=== PATIENT | female | born 1970 | race Caucasian/White ===

== ENCOUNTER 2018-10-10 14:25 | Emergency (ER) | payer MEDICAID, SELFPAY ==
[2018-10-10 14:26] VITALS: BP 163/86; PULSE 78; RESP 17; TEMP 36.9; O2SAT 98; BMI 37.2
--- NOTE | 2018-10-10 15:08 | CT_ITS ---
STUDY: CT ABDOMEN AND PELVIS WITHOUT CONTRAST REASON FOR EXAM: Female, 48 years old. Left flank pain RADIATION DOSAGE (If Supplied By Facility): CTDIvol = ( 14.80 ) mGy, DLP = ( 733.45 ) mGycm TECHNIQUE: Transaxial images were obtained from the dome of the diaphragm to the symphysis pubis without oral contrast, and without intravenous contrast. Sagittal and coronal images were reconstructed. Individualized dose optimization techniques were used for this CT. COMPARISON: None. FINDINGS: The visualized lung bases are unremarkable. The visualized portions of the heart are within normal limits. Normal liver. Normal gallbladder and extrahepatic biliary system. Normal spleen. Normal pancreas. Normal bilateral adrenal glands. Normal right kidney. Normal left kidney. Normal visualized stomach. Normal small intestine. Normal colon. The appendix is visualized and appears normal. There are calcified plaques of the abdominal aorta and common iliac arteries. Normal inferior vena cava. Normal retroperitoneum. Normal urinary bladder. Status post hysterectomy changes are noted. There is a 4 mm calcification in the region of the left UVJ-I cannot determine with certainty if this is intra or extra ureteral. There is a small umbilical hernia containing fat. There are diffuse degenerative changes of the visualized lumbar spine. CT/Abdomen/Pelvis without Cont IMPRESSION: 1. There is no evidence of hydronephrosis, hydroureter, or nephrolithiasis. There is a 4 mm calcification in the region of the left UVJ-I cannot determine with certainty of this is intra or extra ureteral. 2. Status post hysterectomy. 3. Small fat-containing umbilical hernia. 4. There is no evidence of free intra-abdominal or intrapelvic air, fluid, or inflammatory process. Electronically Signed: Geovany Dennis MD at 16:29 EDT , Service support ,
[2018-10-10] MEDS: Ketorolac 30 MG/ML Syringe IV (15:20)
[2018-10-10] MEDS: 0.9% Normal Saline 1,000 ML 150 ML IV (15:20)
[2018-10-10] MEDS: Ondansetron 4 MG/2 ML Vial IV (15:21)
[2018-10-10] MEDS: Morphine 4 MG/ML Syringe IV (15:21)
--- NOTE | 2018-10-10 15:37 | ED.DCSUM_ITS ---
- ER Visit Summary Date of Service: 10/10/18 Chief Complaint: Flank pain History of Present Illness: The patient is a 48 F with rather abrupt left flank pain that started 2 hours prior to arrival. She denies dysuria or hematuria. She does have nausea. She cannot find a position of comfort. Physical Examination: Vital signs significant for blood pressure 163/86, otherwise unremarkable. Patient is standing at bedside. She appears uncomfortable. Head neck examination unremarkable. Heart is regular rate and rhythm. Lung sounds are clear. Abdomen is soft with no focal tenderness. Back examination does reveal left CVA tenderness. Test Results: CBC and chemistry studies are unremarkable. Urinalysis is normal. CT flank shows no evidence of hydronephrosis or hydroureter. There is a 4 mm calcification in the region of the left UVJ. They cannot determine if this is intraluminal or extraluminal. Emergency Department Course and Treatment: Patient was given Toradol, morphine, Zofran, and IV fluids. She did require a small dose of Dilaudid for continued pain. On repeat evaluation she is resting more comfortably. We discussed the possibility of kidney stone versus muscle spasm with pinched nerve. She has b een lifting her granddaughter over the past week which is not normal for her. Patient will be given a prescription for naproxen, [place], and Flexeril. She is to return for worsening symptoms or concerns. Treatment Plan: [] Disposition: Discharge Impression: Left flank pain This note was generated with [employer] dictation software. It may contain incorrect words, spelling, and punctuation that were not noted in review of the chart prior to signing ED Disposition - Plan for ED Patient: Referrals: Ashley Cox [Primary Care Provider] -
[2018-10-10 15:57] LABS: Absolute Lymphocyte Count 1.32 X10^3/ul (0.83-4.51); Basophil# 0.05 X10^3/uL; Basophil% 0.6 % (0-1); Eosinophil# 0.12 X10^3/uL; Eosinophils% 1.5 % (0-5); Hematocrit 39.3 % (37-47); Hemoglobin 12.7 g/dl (12.0-15.0); Lymphocyte # 1.32 X10^3/ul (4.0); Lymphocyte % 16.4 % (19-41); Mean Corp Hgb Conc 32.3 g/gl (32-36); Mean Corpuscular Hgb 28.3 pg (27.0-32.0); Mean Corpuscular Volume 87.7 fL (81-99); Mean Platelet Vol. 11.3 fl (6.2-12.0); Monocyte# 0.55 X10^3/uL; Monocyte% 6.8 % (0-10); Neutrophil % 74.5 % (47-70); Platelet Count 249 K/mm3 (150-450); RBC Distribution Width SD 47.9 fl (35.1-43.9); Red Blood Count 4.48 M/mm3 (4.2-5.4); White Blood Count 8.1 K/mm3 (4.4-11.0)
[2018-10-10 15:59] LABS: POSITIVE COUNT NO; POSITIVE DIFFERENTIAL NO; POSITIVE MORPHOLOGY NO
[2018-10-10 16:14] LABS: BUN 18 mg/dL (7-18); Creatinine, Serum 0.83 mg/dL (0.55-1.02); Glucose 105 mg/dL (74-106)
[2018-10-10 16:15] LABS: Anion Gap 6 (5-15); BUN/Creat Ratio 21.6 RATIO (10-20); Calcium,Total 8.6 mg/dL (8.5-10.1); Chloride 109 mmol/L (98-107); EST Glomerular Filtration Rate 77 mL/min (>60); Est Glom Filt Rate - Afr Amer 93 mL/min (>60); Estimated Creatinine Clearance 82.71 ml/min; Potassium 4.3 mmol/L (3.5-5.1); Sodium Level 137 mmol/L (136-145)
[2018-10-10 17:10] LABS: Bacteria 0 SEEN /hpf (None Seen); Mucous, Urine 0 SEEN /hpf (<or=2+); Red Blood Cells-Urine 0 SEEN /hpf (0-5); White Blood Cells 0 SEEN /hpf (0-5)
[2018-10-10] MEDS: HYDROmorphone 0.5 MG/0.5 ML SYRINGE IV (17:13)
[2018-10-10 17:15] LABS: Color, Urine Yellow (Yellow); Glucose, Dipstick Normal (Normal); Ketone-Dipstick Negative (Negative); Leukocyte Esterase-Dipstick Negative /ul (Negative); Nitrite-Dipstick Negative (Negative); Occult Blood-Urine Negative /ul (Negative); Protein-Dipstick Negative (Negative); Specific Gravity, Urine 1.015 (1.002-1.030); Urine Bilirubin Dipstick Negative (Negative); Urine Clarity Clear (Clear); Urine Urobilinogen Normal (Normal); Urine pH 6.5 (5.0 - 8.0)
[2018-10-10 17:26] LABS: Squamous Epithelial Cells - UA 0-5 SEEN /hpf (5-10)
--- NOTE | 2018-10-10 17:40 | DCINST.ED_ITS ---
ED Disposition - Plan for ED Patient: Disposition: Home or Assisted Living Instructions: ED Flank Pain Uncertain Cause Prescriptions: Hydrocodone Bitart/Apap 5-325 [[place] 5MG-325MG] 1 tablet PO Q6H PRN PRN 3 Days #10 tablet PRN Reason: Pain Naproxen [Naprosyn] 500 mg PO BID PRN PRN #20 tablet PRN Reason: Pain Cyclobenzaprine [Flexeril] 10 mg PO TID PRN #20 tablet PRN Reason: Muscle Spasm Referrals: Ashley Cox [Primary Care Provider] - 1 Week if not improving
[2018-10-10 17:48] VITALS: BP 124/63; PULSE 71; RESP 15; O2SAT 98
== END 2018-10-10 17:49 | disposition home or self-care (01) ==
PROVIDERS: Emergency Provider Emergency Medicine; Family Provider Family Medicine; PCP Family Medicine
DX: R10.9 Unspecified abdominal pain (principal); R11.0 Nausea; K21.9 Gastro-esophageal reflux disease without esophagitis; F32.9 Major depressive disorder, single episode, unspecified; F41.9 Anxiety disorder, unspecified; Z72.0 Tobacco use
CPT/HCPCS: 74176; 80048; 81001; 85025; 96361; 96374; 96375; 99285; J7030; A4216; J2405

== ENCOUNTER → 2019-08-27 08:42 | Outpatient (CLI) | payer MEDICAID, SELFPAY ==
[2019-08-27 10:29] LABS: BUN 11 mg/dL (7-18); Glucose 85 mg/dL (74-106)
[2019-08-27 10:30] LABS: ALB/GLOB Ratio 1.2 RATIO (0.9-2.4); AST(SGOT) 8 U/L (15-37); Alanine Aminotransfer ALT/SGPT 19 U/L (13-56); Albumin, Serum 3.7 g/dL (3.2-5.0); Alkaline Phosphatase 79 U/L (45-117); Anion Gap 6 (5-15); Calcium,Total 9.6 mg/dL (8.5-10.1); Chloride 111 mmol/L (98-107); Cholesterol 179 mg/dL (200); EST Glomerular Filtration Rate 62 mL/min (>60); Est Glom Filt Rate - Afr Amer 76 mL/min (>60); Globulin 3.2 g/dL (2.2-4.2); High Density Lipoprotein 54 mg/dL; Potassium 3.7 mmol/L (3.5-5.1); Protein, Total 6.9 g/dL (6.4-8.2); Sodium Level 143 mmol/L (136-145); Triglycerides 135 mg/dL; Very Low Density Lipoprotein 27 mg/dL (5-40)
== END ==
PROVIDERS: PCP Family Medicine; Referring Provider Family Medicine; Visit Provider Family Medicine
DX: E78.5 Hyperlipidemia, unspecified (principal)
CPT/HCPCS: 36415; 80053; 80061

== ENCOUNTER → 2024-04-21 | Outpatient (CLI) | payer MEDICAID, SELFPAY ==
[2024-04-21 16:27] LABS: Absolute Neutrophil Count 3.3 X10^3/uL (2.0-7.7); Basophil# 0.07 X10^3/uL; Basophil% 1.1 % (0-1); Eosinophil# 0.15 X10^3/uL; Eosinophils% 2.4 % (0-5); Hematocrit 39.3 % (37-47); Hemoglobin 12.5 g/dL (12.0-15.0); Lymphocyte % 32.3 % (19-41); Mean Corp Hgb Conc 31.8 g/dL (32-36); Mean Corpuscular Hgb 28.6 pg (27.0-32.0); Mean Corpuscular Volume 89.9 fL (81-99); Mean Platelet Vol. 11.2 fl (6.2-12.0); Monocyte# 0.62 X10^3/uL; NRBC Flagged by Analyzer 0 % (0-5); Neutrophil # 3.34 X10^3/uL (2.7-7.7); Neutrophil % 53.9 % (47-70); Platelet Count 227 K/mm3 (150-450); RBC Distribution Width CV 14.7 % (11.6-14.6); RBC Distribution Width SD 48.5 fl (35.1-43.9); Red Blood Count 4.37 M/mm3 (4.2-5.4); White Blood Count 6.2 K/mm3 (4.4-11.0)
[2024-04-21 16:54] LABS: ALB/GLOB Ratio 1.3 RATIO (0.9-2.4); AST(SGOT) 12 U/L (15-37); Alanine Aminotransfer ALT/SGPT 19 U/L (13-56); Albumin, Serum 3.8 g/dL (3.2-5.0); Alkaline Phosphatase 94 U/L (45-117); Anion Gap 7 (5-15); BUN 7 mg/dL (7-18); BUN/Creat Ratio 9.4 RATIO (10-20); Calcium,Total 9.2 mg/dL (8.5-10.1); Chloride 108 mmol/L (98-107); Cholesterol 200 mg/dL (200); Creatinine, Serum 0.75 mg/dL (0.55-1.02); EST Glomerular Filtration Rate 86 mL/min (>60); Est Glom Filt Rate - Afr Amer 104 mL/min (>60); Glucose 86 mg/dL (74-106); High Density Lipoprotein 62 mg/dL; Potassium 3.5 mmol/L (3.5-5.1); Protein, Total 6.8 g/dL (6.4-8.2); Sodium Level 140 mmol/L (136-145); Triglycerides 206 mg/dL; Very Low Density Lipoprotein 41 mg/dL (5-40)
== END | disposition home or self-care (01) ==
LOC: BIMLAB 15:30
PROVIDERS: PCP Internal Medicine; Referring Provider Internal Medicine; Visit Provider Internal Medicine
DX: I10 Essential (primary) hypertension (principal)
CPT/HCPCS: 36415; 80053; 80061; 85025

== ENCOUNTER 2024-08-05 15:46 | Emergency (ER) | payer MEDICAID, SELFPAY ==
[2024-08-05 15:46] VITALS: BP 178/93; PULSE 91; RESP 16; TEMP 36.4; O2SAT 100; BMI 33.8
--- NOTE | 2024-08-05 16:46 | CT_ITS ---
STUDY: CT BRAIN WITHOUT CONTRAST REASON FOR EXAM: Female, 54 years old. trauma RADIATION DOSAGE (If Supplied By Facility): CTDIvol = ( 44.99 ) mGy, DLP = ( 829.85 ) mGycm TECHNIQUE: Transaxial CT imaging of the brain was performed without administration of intravenous contrast material. Individualized dose optimization techniques were used for this CT. COMPARISON: No relevant priors. FINDINGS: Normal soft tissue structures. Normal calvarium. Minor calcific plaquing of the cavernous carotids Mild nonspecific cortical atrophy for stated age primarily frontal parietal Normal white matter tracts of the cerebral hemispheres. Normal basal ganglia and thalami. Normal brainstem. Normal cerebellum. Heterogeneous appearance to the pituitary possibly representing adenoma There is no intracranial hemorrhage. There are no findings of an acute ischemic infarction. Normal visualized paranasal sinuses. CT/Brain/Head without Contrast IMPRESSION: No acute abnormality identified. Incidental finding of possible pituitary adenoma Dedicated CT or MRI of the sella turcica would be useful for further evaluation if indicated Electronically Signed: Wilver Stern MD at 17:04 EST Reading Location ID and State: [facility] / [place] Tel , Service support ,
--- NOTE | 2024-08-05 16:46 | CT_ITS ---
STUDY: CT CERVICAL SPINE WITHOUT CONTRAST REASON FOR EXAM: Female, 54 years old. trauma RADIATION DOSAGE (If Supplied By Facility): CTDIvol = ( 31.51 ) mGy, DLP = ( 635.36 ) mGycm TECHNIQUE: High resolution transaxial imaging was performed without contrast material. Sagittal and coronal images were reconstructed. Individualized dose optimization techniques were used for this CT. COMPARISON: None FINDINGS: Normal craniovertebral junction. Normal anterior atlantoaxial articulation. Normal odontoid process. Loss of normal lordotic curvature possibly due to positioning artifact. Normal vertebral bodies and posterior osseous elements. C2-3: Normal endplates. Normal disc height and morphology. Normal central canal and intervertebral neuroforamina. C3-4: Normal endplates. Normal disc height and morphology. Normal central canal and intervertebral neuroforamina. C4-5: Normal endplates. Normal disc height and morphology. Normal central canal and intervertebral neuroforamina. C5-6: Narrowed disc space and endplate spurring. Normal central canal. Severe right neural foraminal stenosis and mild narrowing on the left secondary to bony hypertrophy C6-7: Narrowed disc space and endplate spurring.. Normal central canal. Severe bilateral neural foraminal stenosis secondary to bony hypertrophy C7-T1: Normal endplates. Normal disc height and morphology. Normal central canal and intervertebral neuroforamina. Normal visualized soft tissue structures. CT/Spine Cervical without Contras IMPRESSION: No evidence for acute fracture or other significant bony pathology Spondylosis most severe at C5-6 and C6-7 Electronically Signed: Wilver Stern MD at 17:06 EST Reading Location ID and State: [address] [place] [address] Tel , Service support ,
--- NOTE | 2024-08-05 16:46 | CT_ITS ---
STUDY: CT LUMBAR SPINE WITHOUT CONTRAST REASON FOR EXAM: Female, 54 years old. trauma RADIATION DOSAGE (If Supplied By Facility): CTDIvol = ( 47.95 ) mGy, DLP = ( 1728.50 ) mGycm TECHNIQUE: The patient was scanned in a multi detector CT scanner. High resolution transaxial imaging was performed. Images were obtained from to . Sagittal and coronal images were reconstructed. Individualized dose optimization techniques were used for this CT. COMPARISON: None FINDINGS: Normal lumbar lordosis. There is mild dextroscoliosis or splinting secondary to muscle spasm. Normal vertebrae of the lumbar spine. L1-2: Minor anterior endplate spurring.. Narrowed disc space with intervertebral disc degeneration. Normal bilateral facet joints. Normal central canal and bilateral lateral recesses. Normal bilateral intervertebral neural foramina. L2-3: Degenerative endplate changes. Narrowed disc space and minor endplate spurring with small left foraminal disc/osteophyte protrusion . Mild facet arthropathy. Normal central canal and bilateral lateral recesses. Mild right neural foraminal stenosis and severe narrowing on the left L3-4: Anterior endplate spurring. Normal disc height and mild annular bulge. Normal bilateral facet joints. Normal central canal and bilateral lateral recesses. Mild bilateral neural foraminal encroachment L4-5: Narrowed disc space and mild annular bulge. Facet arthropathy more pronounced on the right and thickening of ligamenta flava. Mildly narrowed central canal and bilateral lateral recesses. Moderate left neural foraminal stenosis and more severe narrowing on the right. L5-S1: Normal endplates. Normal disc height with intervertebral disc degeneration and mild annular bulge. Facet arthropathy. Normal central canal and bilateral lateral recesses. Moderate bilateral neural foraminal stenosis. Normal visualized paraspinous soft tissue structures. CT/Spine Lumbar without Contrast IMPRESSION: No acute fracture or other significant bony pathology Mild scoliosis and degenerative changes. Multilevel spinal stenosis secondary to disc disease and bony hypertrophy most severe at L4-5 greater on the right and L2-3 on the left Electronically Signed: Wilver Stern MD at 17:16 EST Reading Location ID and State: [facility] / [place] Tel , Service support ,
--- NOTE | 2024-08-05 16:50 | RAD_ITS ---
STUDY: X-RAY - PELVIS REASON FOR EXAM: Female, 54 years old. injury TECHNIQUE: One view of the pelvis was obtained. COMPARISON: None. FINDINGS: There is a non-specific bowel gas pattern. Normal visualized soft tissue structures. Normal bilateral iliac wings, sacroiliac joints and visualized sacrum. Normal visualized bilateral superior and inferior pubic rami. Normal pubic symphysis. Normal ischial tuberosities. Normal visualized right femoral head. Normal right acetabulum. Normal right hip joint. Normal visualized left femoral head. Normal left acetabulum. Normal left hip joint. RAD/Pelvis 1 or 2 Views IMPRESSION: Normal x-ray examination of the pelvis. Electronically Signed: Wilver Stern MD at 17:07 [facility] ,
--- NOTE | 2024-08-05 17:04 | ED.VIS.FALL ---
HPI HPI - Fall History of Present Illness Chief Complaint: Fall Informant: patient Narrative Narrative: 54-year-old female presenting to the emergency room with the chief complaint of back pain. Patient states that yesterday she slipped and fell on the ice going down the wooden stairs outside her house. She states she landed more in a sitting position and then went down and strained her neck. She notes a slight headache mostly on the left as well as some muscular pain in her neck with movement. She notes a bruise in the midline of her low back and over towards the left buttock region. She notes pain into the bilateral thighs no bowel or bladder dysfunction. No foot drop. No loss of sensation. She is not on any blood thinners. [facility] Medical History Anxiety and depression Hyperlipidemia Migraine Headache Allergies Home Medications ?Medication ?Instructions ?Recorded ?Last Taken ?Type acetaminophen 325 mg tablet 500 mg PO ONCE PRN 04/21/24 Unknown History (Tylenol) pantoprazole 20 mg tablet,delayed 20 mg PO QDAY 04/21/24 Unknown History release (Protonix) propranolol 60 mg capsule,24 60 mg PO QHS #90 caps 04/21/24 Unknown Rx hr,extended release atorvastatin 20 mg tablet 20 mg PO QDAY #90 tabs 06/04/24 Unknown Rx escitalopram oxalate 10 mg tablet 10 mg PO QDAY #30 tabs 06/04/24 Unknown Rx (Lexapro) sumatriptan succinate 50 mg tablet 50 mg PO ONCE #12 tabs 06/04/24 Unknown Rx topiramate 25 mg tablet (Topamax) 25 mg PO BID #60 tabs 06/30/24 Unknown Rx cyclobenzaprine 10 mg tablet 10 mg PO TID PRN Muscle Spasm #15 08/05/24 Unknown Rx TABLETS oxycodone-acetaminophen 5 mg-325 1 tab PO Q6H PRN PRN Pain 3 days 08/05/24 Unknown Rx mg tablet #12 TABLETS Allergy/AdvReac Type Severity Reaction Status Date / Time No Known Allergies Allergy Verified 08/05/24 15:47 Family History Father Colon cancer Sister Diabetes Brother Hypertension Sister Hypertension Surgical History H/O: hysterectomy Social History adopted: No household members: none and other details: sister housing: house current occupational status: employed current occupational exposures/hazards: No Smoking Status: Current every day smoker tobacco type: cigarettes quit status: considering quitting alcohol intake: former details: once or twice a year substance use type: does not use caffeine: No what type of physical activity do you participate in: none seatbelt use: always do you feel safe at home: Yes ROS ROS ED Constitutional Constitutional ED: Denies chills or weight loss Eyes Eyes: Denies change in vision or diplopia ENT ENT ED: Denies ear pain, rhinorrhea or sore throat Cardiovascular Cardiovascular: Denies chest pain, orthopnea, palpitations or racing heartbeat Respiratory/Chest Respiratory/Chest: Denies cough, dyspnea or orthopnea Gastrointestinal Gastrointestinal: Denies abdominal pain, diarrhea, nausea or vomiting Genitourinary Genitourinary ED: Denies dysuria, hematuria or urinary frequency Musculoskeletal Musculoskeletal: Reports back pain and neck pain; Denies arthralgias or myalgias Integumentary Denies abscess or rash Neurologic Neurologic: Reports headache(s); Denies paresthesias or weakness Psychiatric Psychiatric: Denies anxiety, depression, suicidal ideation or suicidal thoughts Endocrine Endocrinology: Denies polydipsia, polyphagia or polyuria Allergic/Immunologic Allergic/Immunologic ED: Denies mouth swelling, tongue swelling or urticaria EXAM Physical Exam Const Vital Signs: 08/05/24 15:46 08/05/24 16:37 Temperature 97.5 F L Temperature Source Temporal Pulse Rate 91 Respiratory Rate 16 Respiratory Effort Normal Non-Labored Respiratory Depth Normal Respiratory Pattern Normal Blood Pressure 178/93 H Blood Pressure Mean 121 Pulse Ox 100 Oxygen Delivery Method Room Air Room Air Positive well nourished, well developed and obese General Appearance ED: well developed and NAD Nutritional Appearance: obese HEENT Reports normocephalic, head/scalp atraumatic and moist mucous membranes Eyes PERRL and EOMs intact bilaterally Neck full ROM, no lymphadenopathy, supple and no JVD Neck Narrative: Mild muscular tenderness to the trapezius muscle bilaterally. There is no significant midline tenderness. Resp normal respiratory effort and clear to auscultation bilaterally Cardio regular rate, regular rhythm and no murmurs GI normal to inspection, nondistended, normoactive bowel sounds and non-tender Palpation: soft Back/Spine no CVA tenderness Back/Spine Narrative: Painful range of motion. There is a small degree of ecchymosis in the midline around the L3 spinous process. There is a small amount of ecchymosis near the SI joint on the left. Tender in the buttock region bilaterally. Extremity normal to inspection General Extremety ED: Negative for edema General Extremity: Negative for edema Neuro oriented x3 and CN's II-XII intact bilaterally Neuro Narrative: +2 Achilles/patellar DTR sensation intact Sensorium / Orientation: alert Motor Exam: strength 5/5 throughout Psych mental status grossly normal Mood & Affect: Negative for depressed or tearful Skin no rashes or lesions noted and no wounds MDM MDM MDM Narrative Medical decision making narrative: Differential diagnosis includes but not limited to spine fracture cervical and lumbar myofascial strain contusion herniated disc intracranial hemorrhage hematoma fracture CT imaging of the cervical spine lumbar spine and head CT did not show any acute findings. There is changes consistent with a lumbar stenosis. My independent interpretation of the pelvis x-ray is no acute process. The above findings were discussed with the patient. She will be discharged home with cyclobenzaprine and Percocet. I recommend she follow-up with spine surgery for the lumbar stenosis. She does note that she has had pain in the low back for years particularly with her job that involves a lot of standing. Clinically from this injury I think she has more of a myofascial strain and contusion. History & Record Review Discussion w/independent historian: Patient Radiography Diagnostic Testing: Clinical Impression(s) from Imaging Studies Brain CT 08/05/24 16:46 IMPRESSION: No acute abnormality identified. Incidental finding of possible pituitary adenoma Dedicated CT or MRI of the sella turcica would be useful for further evaluation if indicated Electronically Signed: Wilver Stern MD at 17:04 EST , Cervical Spine CT 08/05/24 16:46 IMPRESSION: No evidence for acute fracture or other significant bony pathology Spondylosis most severe at C5-6 and C6-7 Electronically Signed: Wilver Stern MD at 17:06 EST Reading Location ID and State: [address] [place] [address] Tel , Service support , Lumbar Spine CT 08/05/24 16:46 IMPRESSION: No acute fracture or other significant bony pathology Mild scoliosis and degenerative changes. Multilevel spinal stenosis secondary to disc disease and bony hypertrophy most severe at L4-5 greater on the right and L2-3 on the left Electronically Signed: Wilver Stern MD at 17:16 EST Reading Location ID and State: [address] [place] [address] Tel [phone], Service support , Pelvis X-Ray 08/05/24 16:50 IMPRESSION: Normal x-ray examination of the pelvis. Electronically Signed: Wilver Stern MD at 17:07 EST Reading Location ID and State: [address] [place] [address] Tel [phone], Service support , Discharge Plan Triage Chief Complaint: Fall ED Provider: William Villalobos Dx/Rx/DC Orders Clinical Impression: Fall, Acute cervical myofascial strain, Acute lumbar myofascial strain, Spinal stenosis, Back contusion Instructions: ED Neck Sprain or Strain Prescriptions: New cyclobenzaprine 10 mg tablet 10 mg PO TID PRN (Reason: Muscle Spasm) Qty: 15 0RF oxycodone-acetaminophen 5-325 mg tablet 1 tab PO Q6H PRN PRN (Reason: Pain) 3 Days Qty: 12 0RF No Action pantoprazole [Protonix] 20 mg tablet,delayed release (DR/EC) 20 mg PO QDAY acetaminophen [Tylenol] 325 mg tablet 500 mg PO ONCE PRN Rx Instructions: 1-2 tablets every 6 hrs PRN propranolol 60 mg capsule,extended release 24 hr 60 mg PO QHS Qty: 90 2RF escitalopram oxalate [Lexapro] 10 mg tablet 10 mg PO QDAY Qty: 30 1RF sumatriptan succinate 50 mg tablet 50 mg PO ONCE Qty: 12 0RF atorvastatin 20 mg tablet 20 mg PO QDAY Qty: 90 1RF topiramate [Topamax] 25 mg tablet 25 mg PO BID Qty: 60 1RF Stand Alone Forms: ED Work / School Excuse Primary Care Provider: Godfrey Barton Referrals: Jose Bedoya MD [Med Staff - Active Staff] - (For lumbar spinal stenosis) Godfrey Barton MD [Primary Care Provider] - Print Language: Serbian Disposition Disposition: Home, Self Care Discharge Date/Time: 08/05/24 17:48
== END 2024-08-05 17:48 | disposition home or self-care (01) ==
LOC: ED 17:40
PROVIDERS: Emergency Provider Emergency Medicine; PCP Internal Medicine; Visit Provider Emergency Medicine
DX: S16.1XXA Strain of muscle, fascia and tendon at neck level, initial encounter (principal); S39.012A Strain of muscle, fascia and tendon of lower back, initial encounter; S30.0XXA Contusion of lower back and pelvis, initial encounter; W00.1XXA Fall from stairs and steps due to ice and snow, initial encounter; Y92.008 Other place in unspecified non-institutional (private) residence as the place of occurrence of the external cause; E78.5 Hyperlipidemia, unspecified; M48.061 Spinal stenosis, lumbar region without neurogenic claudication; F17.210 Nicotine dependence, cigarettes, uncomplicated; E66.9 Obesity, unspecified; Z68.33 Body mass index [BMI] 33.0-33.9, adult; Z79.899 Other long term (current) drug therapy
CPT/HCPCS: 70450; 72125; 72131; 72170; 99282

== ENCOUNTER → 2024-09-01 | Outpatient (CLI) | payer MEDICAID, SELFPAY ==
--- NOTE | 2024-09-01 12:48 | CDU_ITS ---
Reason For Study Reason For Study: Lt Carotid Bruit Rt. Velocities/BP Lt. Velocities/BP Prox CCA 72/18 cm/sec. Prox CCA 89/31 cm/sec. Mid CCA 75/28 cm/sec. Mid CCA 77/30 cm/sec. Dist CCA 62/27 cm/sec. Dist CCA 67/31 cm/sec. Prox ICA 54/22 cm/sec. Prox ICA 157/54 cm/sec. Mid ICA 71/25 cm/sec. Mid ICA 126/41 cm/sec. Dist ICA 97/44 cm/sec. Dist ICA 125/38 cm/sec. Rt. ICA/CCA = 1.3. Lt. ICA/CCA = 2.1. Prox ECA 113/29 cm/sec. Prox ECA 257/50 cm/sec. Rt. Vert. 49/18 cm/sec. Lt. Vert. 53/23 cm/sec. Right Extracranial There is heterogeneous, irregular atherosclerotic plaque noted in the right common carotid artery. There is heterogeneous, irregular atherosclerotic plaque noted in the right internal carotid artery. There is heterogeneous, irregular atherosclerotic plaque noted in the right external carotid artery. Antegrade flow is noted in the right vertebral artery. Left Extracranial There is heterogeneous, irregular atherosclerotic plaque noted in the left common carotid artery. There is heterogeneous, irregular atherosclerotic plaque noted in the left internal carotid artery. The atherosclerotic plaque causes acoustic shadowing. There is heterogeneous, irregular atherosclerotic plaque noted in the left external carotid artery. Antegrade flow is noted in the left vertebral artery. Procedure Carotid Duplex 10388. This is a Carotid Duplex examination using B-mode, color flow and specral Doppler. Exam performed in department. VL/Carotid Duplex Ultrasound Interpretation Summary Mild (<50%) stenosis right extracranial internal carotid. Moderate (50-69%) stenosis left extracranial internal carotid. Patent and antegrade vertebrals bilaterally. Ordering Physician: Godfrey Barton Referring Physician: Godfrey Barton Performed By: Desiree Kaur, RL, RVT
== END | disposition home or self-care (01) ==
LOC: CVS 12:47
PROVIDERS: PCP Internal Medicine; Referring Provider Internal Medicine; Visit Provider Internal Medicine
DX: R09.89 Other specified symptoms and signs involving the circulatory and respiratory systems (principal)
CPT/HCPCS: 93880